=== PATIENT | male | born 1950 | race Caucasian/White ===

== ENCOUNTER 2017-07-05 16:31 | Emergency (ER) | payer OTHER, MEDICARE ==
[~2017-07-05] VITALS: Ht 177.8 cm; Wt 74.8 kg
[2017-07-05] MEDS ORDERED: SENNA-S TABLET1 EACH PO (17:03)
[2017-07-05] MEDS ORDERED: MIRALAX17 GM PO (17:03)
[2017-07-05 17:06] VITALS: BP 127/93
== END 2017-07-05 17:18 | disposition home or self-care (01) ==
LOC: ER 16:31
DX: K59.00 Constipation, unspecified (principal); F10.99 Alcohol use, unspecified with unspecified alcohol-induced disorder

== ENCOUNTER → 2017-07-12 | Outpatient (CLI) | payer OTHER, MEDICARE ==
[~2017-07-12] MED LIST: MIRALAX17 GM PO; SENNA-S TABLET1 EACH PO
== END ==
LOC: ULTRA 11:32
DX: K59.00 Constipation, unspecified (principal)

== ENCOUNTER 2018-08-24 04:26 | Emergency (ER) | payer OTHER, MEDICARE ==
[~2018-08-24] VITALS: Ht 177.8 cm; Wt 61.7 kg
--- NOTE | ~2018-08-24 | H ---
[facility] [address] HISTORY AND PHYSICAL Name: MARK NGUYEN Room #: DEP Shayla#: [id number] Admission: 08/24/18 Attend Phys: Discharge: 08/24/18 Date of : 48 Report #: [id number] THIS REPORT FOR: //name// CC: Rudolph Eagle DATE OF SERVICE: 08/24/2018 HISTORY OF PRESENT ILLNESS: Information is obtained from the patient, his and the Emergency Room record. He got up perhaps about 2 o'clock this morning because his cat was swaying to let the cat outside. He lost consciousness and does not remember losing consciousness. He regained consciousness on the floor beside his kitchen sink. He had pain across his upper teeth, his chin and his chest from the fall. His brought him to the Emergency Room. Please see his evaluation by Dr. Lizarraga first followed by Dr. Rudolph Banks. His chin laceration was repaired with sterile technique using Dermabond. He was given appropriate x-rays reviewed below. He was given intravenous fluids. When he was ready for discharge from the Emergency Room, he had profound orthostatic blood pressure drop. Intravenous fluids were continued under the direction of Dr. Banks and after several liters, his heart rate at rest was 120 with a standing blood pressure of 92 systolic and greater than. He was unable to walk without being unsteady, and intravenous fluids were continued and at that time, admission was arranged for continued intravenous fluids. With his history of alcohol use, the alcohol withdrawal protocol was initiated and a banana bag given as well. He received a total of 4 liters of IV fluid and began to feel better with less of an orthostatic change. He also was in communication with his dentist regarding his displaced 2 front incisors and it was indicated that treatment should be given to that as soon as possible. At about noon, he was much more steady on his feet and able to walk without significant blood pressure drop. He requested that he be allowed to leave the hospital and proceed to his dentist to have his teeth dressed. At the time of discharge, he was able to walk across the room with only 20 mm systolic drop in blood pressure, but his blood pressure maintained in 115 systolic and he was not shaky. PHYSICAL EXAMINATION: GENERAL: He appeared mildly weak and tired, but alert. HEENT: The laceration on the point of his chin had been repaired. 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 LUNGS: Clear, although he did have a slight cough. CARDIOVASCULAR: S1 and S2 were normal. The left mid chest wall was quite [address] [address] HISTORY AND PHYSICAL Name: MARK NGUYEN Room #: DEP Shayla#: [id number] Admission: 08/24/18 Attend Phys: Discharge: 08/24/18 Date of : 48 Report #: [id number] tender to palpation where his left fifth rib fracture had been identified by x-ray. ABDOMEN: Soft and nontender. EXTREMITIES: Normal. NEUROLOGIC: His screening neurological examination was normal as well. His front 2 the incisor teeth appeared to have the tips displaced slightly posteriorly and the roots of the teeth displaced anteriorly. The CT scan of his facial bones was reviewed with Dr. Banks and it was found that there was a very small fracture of the anterior alveolar bone housing the 2 front incisors. This had been missed on the initial interpretation, but had been reported on the subsequent interpretation of the CT scan. CT scan of the C-spine was negative for fracture or subluxation. Mild degenerative changes were present with spondylosis being noted at C5 and C6. Mild centrilobular emphysema was seen in the portion of the lung castillo were included in the images. Mild mucosal thickening of the maxillary sinus was seen. CT scan of the head without contrast showed no acute process. CT scan of the ribs showed old granulomatous disease with a minimally displaced fracture of the left anterolateral fifth rib. Electrolytes were unremarkable. Creatinine was 1.2. Random glucose was 123. Liver function tests were within the normal range. Phosphorus was mildly low at 2.4 (2.5-4.9). Magnesium was normal at 2.3. Total protein was 7.0 and albumin 3.6. Troponin was negative. NT-proBNP was normal. Free T4 was normal at 0.9. White blood cell count was normal at 8.3 thousand, hemoglobin normal at 14.2, hematocrit was 41.8 and platelets were 209,000. There is a mild left shift with 88% segmented neutrophils. TSH was normal at 2.8, folate 22.7. Vitamin B12 at 855. Free T4 normal at 0.9. Alcohol level drawn at 4:50 a.m. was 85 indicating that the level had been much higher several hours earlier when the event occurred and higher yet before going to bed for the night. Additional history became available that the patient had started pilocarpine several times daily about 7 days prior to this event. 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 The pilocarpine was prescribed by Dr. Rudolph Hatfield. His ear, nose and throat specialist to help with his chronically dry mouth. The pilocarpine could very well have been a significant component of causing his syncope through its muscular sympathetic activity by dropping his blood pressure and blocking the [facility] [address] [place] [address] HISTORY AND PHYSICAL Name: MARK NGUYEN James Room #: DEP Shayla#: [id number] Admission: 08/24/18 Attend Phys: Discharge: 08/24/18 Date of : 48 Report #: [id number] compensatory response when he got up out of bed and started walking to cross his house to let his cat out the door. ASSESSMENT: 1. Profound syncopal event with unprotected fall straight forward on his face. 2. Significant orthostatic blood pressure changes that improved after 4 liters of IV fluid. 3. Muscular activity of his pilocarpine was added to the blood pressure drop. 4. Injury to the 2 upper incisors involving a small anterior displacement of the roots and body of the teeth and fracture of the thin alveolar plate overlying just these 2 teeth. 5. Laceration on the point of the chin that was repaired in the Emergency Room with Dermabond. 6. Vasodilator effects of alcohol added to the milieu leading to the syncope. 7. Esophageal cancer -- treated and the patient reports there is only 20% chance of recurrence. 8. Profound xerostomia as a result of the treatment for the esophageal cancer. 9. Mild centrilobular emphysema on the portions of the lungs imaged by CT scan of the neck. 10. Nondisplaced left lateral fifth rib fracture. PLAN: The patient is discharged with the company of his . He is to proceed directly to his dentist, Dr. Aldo Kellogg for attention to his 2 front teeth. He has with him the printed reports and the images on a disk of his CT scans. He is to continue to drink quite a bit of water and stay hydrated. Hydrocodone 5/325 #15 tablets one every 4-6 hours as needed for severe pain and he is not to mix with alcohol. Tramadol 50 mg, #30, one 4 times daily as needed for less severe pain. He is to see me in my office in several days. He is to call if he has any problems. Telephone call with the patient at 7:00 p.m. indicates that he did get to the dental surgeon who referred him to an biodiesel engineering manager who put a temporary bracing across the front of the teeth to slowly reduce the displacement of the teeth and the bone. He was feeling much better at that time. Telephone call at 9:00 p.m. to the patient to review head injury precautions. Telephone call at 1:15 p.m. to the dentist, Dr. Aldo [place] [address] HISTORY AND PHYSICAL Name: MARK NGUYEN Room #: DEP Shayla#: [id number] Admission: 08/24/18 Attend Phys: Discharge: 08/24/18 Date of : 48 Report #: [id number] nature of the injury of the teeth was described to him. He indicated they would be ready to take care of him as soon as he got to the office. By: 20 0005 MD matilda Craig
[~2018-08-24 04:26] MED LIST changes: +IBUPROFEN 200200 M1 PO
[2018-08-24 04:30] VITALS: BP 127/77
[2018-08-24 05:03] LABS: ABSOLUTE NEUTROPHILS 7.4 thou/uL (1.4-8.2); BASOPHILS 0.6 % (0.0-2.0); HEMATOCRIT 41.8 % (42.0-52.0); HEMOGLOBIN 14.2 gm/dL (14.0-18.0); LYMPHOCYTES 5.2 % (24.0-44.0); MCH 31.9 pg (26.0-34.0); MCHC 33.9 g/dL (28.0-37.0); PLATELET COUNT 209 thou/uL (150-400); POLYS 88.2 % (36.0-66.0); RBC 4.45 mil/uL (4.50-6.00); RDW 13.1 % (10.5-14.5); WBC 8.3 thou/uL (4.0-11.0)
[2018-08-24 05:13] LABS: ANION GAP 9 mmol/L (7-16); BUN 21 mg/dL (7-18); CHLORIDE 106 mmol/L (98-107); CO2 26 mmol/L (21-32); CREATININE 1.2 mg/dL (0.7-1.3); GLUCOSE 123 mg/dL (74-106); POTASSIUM 4.2 mmol/L (3.5-5.1); SODIUM 141 mmol/L (136-145)
[2018-08-24 05:22] LABS: ALBUMIN 3.6 g/dL (3.4-5.0); MAGNESIUM 2.3 mg/dL (1.8-2.4); SGOT 25 U/L (15-37); SGPT 28 U/L (30-65); TOTAL BILIRUBIN 0.2 mg/dL (<0.1-1.0); TROPONIN-I <0.06 ng/mL (<0.06)
[2018-08-24] MEDS ORDERED: TRAMADOL 50 MG50 MG PO (05:45)
[2018-08-24 08:48] LABS: URINE BILIRUBIN NEGATIVE (Negative); URINE BLOOD NEGATIVE (Negative); URINE CLARITY CLEAR; URINE COLOR YELLOW; URINE GLUCOSE-RANDOM* NEGATIVE (Negative); URINE KETONES 1+ (Negative); URINE LEUKOCYTES NEGATIVE (Negative); URINE NITRITE NEGATIVE (Negative); URINE PROTEIN (DIPSTICK) NEGATIVE (Negative); URINE UROBILINOGEN 0.2 E.U./dl (0.2-1.0)
[2018-08-24 09:30] LABS: MAGNESIUM 2.3 mg/dL (1.8-2.4); PHOSPHORUS 2.4 mg/dL (2.5-4.9)
[2018-08-24 09:57] LABS: FOLIC ACID 22.7 ng/mL (8.6-58.9)
[2018-08-24] MEDS ORDERED: HYDROCODON-ACE1 EAC7 PO (13:47)
[2018-08-24 13:59] VITALS: BP 112/74
[2018-08-24 15:07] VITALS: BP 112/74
== END 2018-08-24 15:08 | disposition home or self-care (01) ==
LOC: ER 04:26 → EROBS 09:09 → ER 15:08
PROVIDERS: Emergency Medicine
DX: S01.81XA Laceration without foreign body of other part of head, initial encounter (principal); S20.219A Contusion of unspecified front wall of thorax, initial encounter; S09.93XA Unspecified injury of face, initial encounter; R55 Syncope and collapse; Z85.01 Personal history of malignant neoplasm of esophagus; Z87.891 Personal history of nicotine dependence; Z88.6 Allergy status to analgesic agent; W18.30XA Fall on same level, unspecified, initial encounter; Y93.89 Activity, other specified; Y92.89 Other specified places as the place of occurrence of the external cause; Y99.8 Other external cause status

== ENCOUNTER → 2018-08-31 | Outpatient (CLI) | payer OTHER, MEDICARE ==
[~2018-08-31] MED LIST changes: +HYDROCODON-ACE1 EAC7 PO; +TRAMADOL 50 MG50 MG PO
== END ==
LOC: RAD 15:40
DX: S22.39XD Fracture of one rib, unspecified side, subsequent encounter for fracture with routine healing (principal); J98.11 Atelectasis; J90 Pleural effusion, not elsewhere classified; X58.XXXD Exposure to other specified factors, subsequent encounter

== ENCOUNTER → 2019-09-13 | Outpatient (CLI) | payer OTHER, MEDICARE | LOC: ULTRA 13:09 | DX: E04.1 Nontoxic single thyroid nodule (principal); C79.89 Secondary malignant neoplasm of other specified sites; C12 Malignant neoplasm of pyriform sinus; K11.7 Disturbances of salivary secretion ==

== ENCOUNTER → 2020-03-08 | Outpatient (CLI) | payer OTHER, MEDICARE | LOC: SJCVCIMAG 08:13 | DX: R94.31 Abnormal electrocardiogram [ECG] [EKG] (principal); I45.10 Unspecified right bundle-branch block; R00.0 Tachycardia, unspecified; I37.1 Nonrheumatic pulmonary valve insufficiency; I65.23 Occlusion and stenosis of bilateral carotid arteries; E78.5 Hyperlipidemia, unspecified; C10.9 Malignant neoplasm of oropharynx, unspecified ==

== ENCOUNTER → 2021-03-08 | Outpatient (CLI) | payer OTHER, MEDICARE | LOC: SJCVC 11:41 | PROVIDERS: ATTEND Internal Medicine | DX: R94.31 Abnormal electrocardiogram [ECG] [EKG] (principal); I45.10 Unspecified right bundle-branch block; E78.5 Hyperlipidemia, unspecified; C10.9 Malignant neoplasm of oropharynx, unspecified; Z98.890 Other specified postprocedural states; Z88.8 Allergy status to other drugs, medicaments and biological substances; Z79.899 Other long term (current) drug therapy; Z87.891 Personal history of nicotine dependence; Z82.49 Family history of ischemic heart disease and other diseases of the circulatory system ==